=== PATIENT | female | born 1935 | race Caucasian/White ===

== ENCOUNTER → 2017-05-14 | Day surgery (SDC) | payer OTHER ==
[2017-04-09 11:07] VITALS: Ht 157.5 cm; Wt 63.6 kg
[~2017-05-14] VITALS: Ht 157.5 cm; Wt 63.6 kg
[~2017-05-14] MED LIST: 500ML BSS 0.3ML EPI 1:1000PF IRRIG ONE; ACET-1256 PO; ACETAMINOPHEN 325 MG TAB PO PRN; AMIO200T4 PO; AMVISC PLUS 0.8ML SYRINGE INT OCU ONE; ASPI325T45 PO; ATOR-24 PO; ATROPINE SULFATE 0.1 MG/ML 5ML SYR IV PRN; ATROPINE SULFATE 1% OP SOLN 2 ML BTL ONE; AcetylCHOLine CHL OP SOL 1:100 2 ML BTL ONE; BRIMONIDINE TART 0.2% OP SOLN PER DROP CHARGE ONE; BSS FLUSH ONE; DOCU100T7 PO; ENDOCOAT 0.85ML SYRINGE INT OCU ONE; ERGO500011 PO; ESCI1TAB10 PO; EpHEDrine SULFATE INJ 50 MG/ML AMP IV PRN; EpINEphrine INJ 1MG/ML AMP 1 MG/ML AMP ONE; FEBU40TA PO; FURO-85 PO; HEALON 10MG/ML 0.85 ML SYR INSTIL ONE; LEVO88TA3 PO; LIDOCAINE 4% OP SOLN DROP CHARGE ONE; LIDOCAINE 4% OP SOLN DROP CHARGE OPL SCH; LIDOCAINE HCL 1% MPF 2 ML VIAL ONE; MAGN250T3 PO; METO25TA3 PO; MIDAZOLAM HCL 1 MG/ML 2ML VIAL ONE; MOXIFLOXACIN OPH SOLN PER DROP CHARGE ONE; POVIDONE-IODINE OP SOLN 30 ML BTL ONE; PROPARACAINE 0.5% OP SOLN PER DROP CHARGE OPL SCH; PYRI100T4 PO; TETRACAINE HCL (OPHTH) 60 DROPS/4 ML BTL OP ONE; TOBRAMYCIN/DEXAMETHASONE OPH OINT PER APPLN CHARGE ONE; ZNTT/150 PO; [UNRECOGNIZED DRUG - OTHER] PO
[2017-05-14] MEDS: PHENYLEPHRINE HCL 2.5% OP SOLN PER DROP CHARGE OPL SCH ×2 (09:16→09:22)
[2017-05-14] MEDS: CYCLOPENTOLATE HCL 1% OP SOLN PER DROP CHARGE OPL SCH ×2 (09:17→09:24)
[2017-05-14] MEDS: TROPICAMIDE 1% OP SOLN PER DROP CHARGE OPL SCH ×2 (09:17→09:23)
[2017-05-14] MEDS: KETOROLAC 0.5% OP SOLN PER DROP CHARGE OPL SCH ×2 (09:18→09:25)
[2017-05-14] MEDS: MOXIFLOXACIN OPH SOLN PER DROP CHARGE OPL SCH ×2 (09:19→09:28)
[2017-05-14] MEDS: LACTATED RINGER'S 1000ML 1,000 ML IV SCH ×2 (09:20→11:28)
--- NOTE | 2017-05-14 09:23 | History & Physical Bridge - [place] ---
H&P Re-Evaluation Bridge Note: I have examined the patient, reviewed the History & Physical and in the interval since the performance of the History & Physical I have noted the following changes of clinical significance: No changes noted
--- NOTE | 2017-05-14 11:20 | [facility] Post Operative Brief Note ---
Immediate Operative Summary Operative Date May 14, 2017. 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
[2017-05-14 11:22] VITALS: TEMP 36.8
--- NOTE | 2017-05-14 11:22 | Discharge Instructions-SurgCtr ---
Discharge Instructions Date of Service May 14, 2017. Visit Reason for Visit: Left Eye Fuch's Dystrophy, Cataract Discharge Discharge Diagnosis / Problem: Fuchs dystrophy and cataract left eye Discharge Goals Goal(s): Improve function Activity Recommendations Activity Limitations: per Instructions/Follow-up section Lifting Limitations: no more than 5 pounds Anesthesia . Post Anesthesia Instructions: If you have had General Anesthesia or IV Sedation: * Do not drive today. * Resume driving when surgeon permits. * Do not make important decisions or sign legal documents today. * Call surgeon for: 1. Temperature elevations greater than 101 degrees F. 2. Uncontrollable pain. 3. Excessive bleeding. 4. Persistent nausea and vomiting. 5. Medication intolerance (nausea, vomiting or rash). * For nausea and vomiting use only clear liquids such as: tea, soda, bouillon until nausea subsides, then gradually increase diet as tolerated. * If you have any concerns or questions, call your surgeon's office. If physician is unavailable and it is an emergency, call 911 or go to the nearest emergency room. . Instructions / Follow-Up Instructions / Follow-Up ACTIVITY RECOMMENDATIONS: * Bedrest (eyes to the lissette) MEDICATIONS: Resume previous medications unless instructed otherwise by your surgeon. Eye drops (today and tomorrow): Polytrim - one drop in operative eye every 2 hours while awake Prednisolone 1% - one drop in operative eye every 2 hours while awake Prolensa - one drop operative eye 1 times daily SPECIAL CARE INSTRUCTIONS: * If any problems or concerns, please call Dr. Jones's office at . * Keep plastic shield taped over eye to sleep at night. * Keep plastic shield taped over eye except to administer eye drops. * Keep plastic shield on until office visit the following day. FOLLOW UP VISIT: Follow-up with Dr. Jones in the [facility] office as scheduled. If not already scheduled, please call the office at . Diet Recommendations Home Diet: resume previous diet Procedures Procedures Performed: Left Eye Descements Stripping Automated Endothelial Keratoplasty, Back Bench, Cataract Phacomeulsification with Intraocular Lens Implant Pending Studies Studies pending at discharge: yes List of pending studies: donor rim culture Medical Emergencies . Who to Call and When: Medical Emergencies: If at any time you feel your situation is an emergency, please call 911 immediately. . Non-Emergent Contact Non-Emergency issues call your: Wafer Line Worker . . "Provider Documentation" section prepared by Jos Jones. .
--- NOTE | 2017-05-14 11:54 | Anesthesia Progress Nt - [facility] ---
Anesthesia Post Op Note Date & Time May 14, 2017 at 11:54 Vital Signs Pain Intensity: 0 Vital Signs Past 12 Hours Date Time Temp Pulse Resp B/P (MAP) Pulse Ox O2 Delivery O2 Flow Rate FiO2 05/14/17 11:52 60 18 162/86 (111) 95 Room Air 05/14/17 11:22 36.8 65 16 155/83 (107) 98 Room Air 05/14/17 09:11 37.2 58 20 151/78 (102) 98 Room Air Notes Mental Status: alert / awake / arousable, participated in evaluation Pt Amnestic to Procedure: Yes Nausea / Vomiting: adequately controlled Pain: adequately controlled Airway Patency, RR, SpO2: stable & adequate BP & HR: stable & adequate Hydration State: stable & adequate Anesthetic Complications: no major complications apparent
[2017-05-14 12:20] VITALS: BP 140/78; PULSE 65; O2SAT 95
--- NOTE | 2017-05-14 12:24 | OPERATIVE REPORT ---
DATE OF OPERATION: 05/14/2017 PREOPERATIVE DIAGNOSIS: Dense nuclear sclerotic cataract, left eye with Fuchs corneal dystrophy, left eye. POSTOPERATIVE DIAGNOSIS: Same. PROCEDURE PERFORMED: Phacoemulsification cataract extraction with intraocular lens placement and Descemet stripping automated endothelial keratoplasty, left eye. COMPLICATIONS: None. ESTIMATED BLOOD LOSS: None. ANESTHESIA: Local with sedation. DESCRIPTION OF PROCEDURE: After an informed consent was obtained in the holding area, attention was first turned to the donor cornea. It was placed endothelial side up on the donor trephine and trephinated with an 8.0-mm Peyton trephine by myself. It was then covered in Optisol and set aside. The patient was then brought back to the operating room, where cardiac monitoring leads and oxygen by nasal cannula were administered by anesthesia. Gentle IV sedation was given and the patient's left eye was prepped and draped in the usual sterile fashion. A wire lid speculum was placed in the left eye and the operating microscope was swung into position. Using 0.12 forceps and a supersharp blade, a paracentesis port was made at the 5 o'clock position of the patient's left eye. 1% nonpreserved lidocaine was injected into the anterior chamber for anesthesia. A 2.0-mm keratome blade was then used to make a shelved clear cornea incision at the 3 o'clock position of the patient's left eye. The anterior chamber was filled with Healon and a curvilinear capsulorrhexis was performed with the cystotome and Utrata forceps. BSS on a hydrodissection cannula was then used to hydrodissect the lens nucleus away from the capsular bag. The phacoemulsification handpiece was then used in a stop and chop fashion to remove the lens nucleus. Irrigation aspiration handpiece was then used to remove the residual cortical material. The eye was then filled with Healon. The main incision enlarged to 4 mm and a Bausch and Lomb MX60, 26.5 Diopter intraocular lens was injected into the capsular bag. The previously used trephine blade was then inked and used to susanna the surface of the cornea for an 8.0-mm diameter. Reversed Sinskey hook was then used to score and strip Descemet's membrane from within the marked area. The Descemet stripper then removed the stripped Descemet's membrane from the eye. A stromal simulation software engineer was then used to roughen the stromal bed in the periphery. The irrigation-aspiration handpiece was then used to remove the viscoelastic material from the anterior chamber. Miochol was then injected into the anterior chamber to bring the pupil down. The donor graft was then placed endothelial side up on the EndoSerter and a drop of Healon was placed on it. It was then retracted into the EndoSerter. The EndoSerter was used to inject the graft into the anterior chamber. The graft was unfolded underneath BSS and air and a single 10-0 nylon suture was placed through the main incision. A complete air fill of the anterior chamber was achieved and held for 15 minutes, during which time the cornea was coated with Amvisc. After 15 minutes, the Amvisc was rinsed off the eye and a [place] [employer] roller was used to milk the interface. The eye was recoated in Amvisc and another 10 minutes elapsed, after which time a partial air fluid exchange was done leaving behind a 70% air fill. ReSure sealant was placed over the paracentesis and main incision. The wire lid speculum was removed from the eye. Vigamox, brimonidine and TobraDex ointment were placed on the eye and the eye was shielded. The patient tolerated the procedure well and was taken to recovery area in stable condition. I attest to the content of the Intraoperative Record and any orders documented therein. Any exceptions are noted below. [email or web address]
== END | disposition home or self-care (01) ==
LOC: X.SURG 08:49
PROVIDERS: ATTEND Ophthalmology
DX: H25.12 Age-related nuclear cataract, left eye (principal); H18.51 Endothelial corneal dystrophy; I12.9 Hypertensive chronic kidney disease with stage 1 through stage 4 chronic kidney disease, or unspecified chronic kidney disease; E78.00 Pure hypercholesterolemia, unspecified; N28.9 Disorder of kidney and ureter, unspecified; I25.2 Old myocardial infarction; Z79.82 Long term (current) use of aspirin; Z79.899 Other long term (current) drug therapy